=== PATIENT | male | born 1950 | race Caucasian/White ===

== ENCOUNTER 2018-06-07 07:12 | Day surgery (SDC) | payer OTHER ==
[2018-06-07] MEDS: NEPAFENAC 0.1% 3 ML OPH OPER ×3 (07:54→08:04)
[2018-06-07] MEDS: PHENYLephrine 10% 5 ML OPH OPER ×3 (07:54→08:04)
[2018-06-07] MEDS: MOXIFLOXACIN 0.5% 3 ML OPH OPER (07:54)
[2018-06-07] MEDS: CYCLOPENTOLATE 2% 2 ML OPH OPER ×3 (07:54→08:04)
[2018-06-07] MEDS ORDERED: LIDOCAINE 1% (MPF) 10 ML INJ (08:36)
[2018-06-07] MEDS ORDERED: LIDOCAINE 2% (SDV) 5 ML INJ ×2 (08:36→09:51)
[2018-06-07] MEDS ORDERED: BUPIVACAINE 0.75% (MPF) 10 ML INJ (08:36)
[2018-06-07] MEDS ORDERED: EPINEPHrine 1 MG INJ (08:37)
[2018-06-07] MEDS ORDERED: TIMOLOL 0.5% 5 ML OPH (08:37)
[2018-06-07] MEDS ORDERED: SODIUM BICARBONATE (09:31)
[2018-06-07] MEDS ORDERED: NEOSTIGMINE 3 MG/3 ML SYRINGE (09:51)
[2018-06-07] MEDS ORDERED: PROPOFOL 20 ML (09:51)
[2018-06-07] MEDS ORDERED: GLYCOPYRROLATE 1 MG INJ (09:51)
[2018-06-07] MEDS ORDERED: FENTAnyl 50 MCG/ML VIAL (09:51)
[2018-06-07] MEDS ORDERED: ROCURONIUM 50 MG INJ (09:51)
[2018-06-07] MEDS ORDERED: MIDAZOLAM 1 MG/ML 2 ML INJ (09:52)
[2018-06-07] MEDS ORDERED: DEXAMETHASONE 4 MG/ML 1 ML INJ (09:53)
[2018-06-07] MEDS ORDERED: ONDANSETRON 4 MG INJ (09:53)
[2018-06-07] MEDS ORDERED: LABETALOL HCL 20MG INJ (10:55)
== END 2018-06-07 12:59 | disposition home or self-care (01) ==
LOC: SDS 07:12
DX: H25.12 Age-related nuclear cataract, left eye (principal)
CPT/HCPCS: 66984

== ENCOUNTER 2018-11-02 07:38 | Emergency (ER) | payer OTHER ==
[2018-11-02 08:33] LABS: ADD MAN DIFF? NO
[2018-11-02 08:35] LABS: BASOPHIL # 0.1 10^3/ul (0.0-0.1); BASOPHILS % 0.6 % (0.0-2.0); EOSINOPHILS # 0.4 10^3/ul (0.0-0.5); EOSINOPHILS % 4.1 % (0.0-7.0); HEMATOCRIT 40.8 % (42.0-52.0); LYMPHOCYTES # 2.7 10^3/ul (0.8-2.9); LYMPHOCYTES % 26.9 % (15.0-51.0); MEAN CORPUSCULAR HEMOGLOBIN 29.7 pg (29.0-33.0); MEAN CORPUSCULAR HGB CONC 31.9 g/dl (32.0-37.0); MEAN CORPUSCULAR VOLUME 93.4 fl (82.0-101.0); MEAN PLATELET VOLUME 10.5 fl (7.4-10.4); MONOCYTE # 1.2 10^3/ul (0.3-0.9); MONOCYTES % 11.5 % (0.0-11.0); NEUTROPHIL # 5.7 10^3/ul (1.6-7.5); NEUTROPHILS % 56.2 % (39.0-77.0); PLATELET COUNT 280 10^3/UL (140-415); RED BLOOD COUNT 4.37 10^6/ul (4.70-6.10); RED CELL DISTRIBUTION WIDTH 13.6 % (11.5-14.5)
[2018-11-02 08:35] LABS: WHITE BLOOD COUNT 10.1 10^3/ul (4.8-10.8)
[2018-11-02 08:55] LABS: INR 1.03; PROTIME 13.6 Sec (11.9-14.9); PT RATIO 1.1
[2018-11-02 08:56] LABS: PARTIAL THROMBOPLASTIN TIME 28.1 Sec (23.0-35.0)
[2018-11-02 09:06] LABS: ALANINE AMINOTRANSFERASE 17 IU/L (13-69); ALBUMIN 4.2 g/dl (3.3-4.9); ALBUMIN/GLOBULIN RATIO 0.97; ALKALINE PHOSPHATASE 133 IU/L (42-121); AMYLASE 174 U/L (11-123); ANION GAP 11 (5-13); ASPARTATE AMINO TRANSFERASE 28 IU/L (15-46); BILIRUBIN,INDIRECT 0.3 mg/dl (0-1.1); BILIRUBIN,TOTAL 0.3 mg/dl (0.2-1.3); BLOOD UREA NITROGEN 38 mg/dl (7-20); CALCIUM 9.8 mg/dl (8.4-10.2); CARBON DIOXIDE 27 mmol/L (21-31); CHLORIDE 103 mmol/L (97-110); CREATININE 2.49 mg/dl (0.61-1.24); Estimated GFR 26 mL/min (>60); GLUCOSE 81 mg/dl (70-220); LIPASE 235 U/L (23-300); POTASSIUM 4.6 mmol/L (3.5-5.1); SODIUM 141 mmol/L (135-144); TOTAL PROTEIN 8.5 g/dl (6.1-8.1)
[2018-11-02 09:11] LABS: TROPONIN-I < 0.012 ng/ml (0.000-0.120)
== END 2018-11-02 13:30 | disposition home or self-care (01) ==
LOC: E/R 07:38
DX: I71.4 Abdominal aortic aneurysm, without rupture (principal); I10 Essential (primary) hypertension; F17.210 Nicotine dependence, cigarettes, uncomplicated; Z79.82 Long term (current) use of aspirin
CPT/HCPCS: 71250; 74176; 80053; 82150; 83690; 84484; 85025; 85610; 85730; 93005; 99285-25

== ENCOUNTER 2018-11-29 06:49 | Day surgery (SDC) | payer OTHER ==
[2018-11-29] MEDS: MOXIFLOXACIN 0.5% 3 ML OPH RIGHT EYE (07:57)
[2018-11-29] MEDS: CYCLOPENTOLATE 2% 2 ML OPH RIGHT EYE ×3 (07:57→08:08)
[2018-11-29] MEDS: PHENYLephrine 10% 5 ML OPH RIGHT EYE ×3 (07:58→08:08)
[2018-11-29] MEDS: NEPAFENAC 0.1% 3 ML OPH RIGHT EYE ×3 (07:58→08:08)
[2018-11-29] MEDS ORDERED: OXYCODONE/ACETAMINOPHEN (5/325) TAB PO (08:30)
[2018-11-29] MEDS ORDERED: hydrALAzine 20 MG INJ IV (08:30)
[2018-11-29] MEDS ORDERED: ALBUTEROL 0.083% (NEB) 2.5 MG/3 ML AMP HHN (08:30)
[2018-11-29] MEDS ORDERED: ONDANSETRON 4 MG INJ IV (08:30)
[2018-11-29] MEDS ORDERED: ACETAMINOPHEN 325 MG TAB PO (08:30)
[2018-11-29] MEDS ORDERED: DIPHENHYDRAMINE 50 MG INJ IV (08:30)
[2018-11-29] MEDS ORDERED: ACETAMINOPHEN 500 MG TAB PO (08:30)
[2018-11-29] MEDS ORDERED: FENTAnyl 50 MCG/ML VIAL IV (08:30)
[2018-11-29] MEDS ORDERED: LABETALOL HCL 20MG INJ IV (08:30)
[2018-11-29] MEDS ORDERED: TIMOLOL MALEATE/PF 0.5% OCCUDOSE (0.3 ML) (09:02)
[2018-11-29] MEDS ORDERED: CARBACHOL 0.01% 1.5 ML OPH INJ (09:02)
[2018-11-29] MEDS ORDERED: NA BICARB 50 MEQ/50 ML VIAL (09:03)
[2018-11-29] MEDS ORDERED: EPINEPHrine 1 MG INJ (09:03)
[2018-11-29] MEDS: TIMOLOL 0.5% 5 ML OPH RIGHT EYE (09:15)
[2018-11-29] MEDS: LIDOCAINE 1% (MPF) 10 ML INJ INJ (09:15)
[2018-11-29] MEDS ORDERED: LIDOCAINE 2% (SDV) 5 ML INJ (10:00)
[2018-11-29] MEDS ORDERED: PROPOFOL 200 MG INJ (10:00)
== END 2018-11-29 11:21 | disposition home or self-care (01) ==
LOC: SDS 06:49
DX: H25.11 Age-related nuclear cataract, right eye (principal); E11.22 Type 2 diabetes mellitus with diabetic chronic kidney disease; N18.3 Chronic kidney disease, stage 3 (moderate); I10 Essential (primary) hypertension; E78.5 Hyperlipidemia, unspecified; N40.0 Benign prostatic hyperplasia without lower urinary tract symptoms; I71.9 Aortic aneurysm of unspecified site, without rupture; I70.90 Unspecified atherosclerosis; J43.9 Emphysema, unspecified; Z79.82 Long term (current) use of aspirin
CPT/HCPCS: 66984